=== PATIENT | male | born 2000 | race Hispanic/Latino ===

== ENCOUNTER → 2020-02-17 | Outpatient (CLI) | payer BC ==
[~2020-02-17] MED LIST: GADOBENATE DIMEGLUMINE 1 ML IV ONE; IOPAMIDOL 300 MG/ML 15ML VIAL IT ONE
--- NOTE | 2020-02-17 12:08 | Diagnostic Imaging Report ---
MRI of the left shoulder with contrast. History: Shoulder pain. Possible dislocation. Superior glenoid labrum tear. Shoulder laxity. Decreased range of motion Comparison: None Technique: Multiplanar multisequence MRI of the shoulder after the administration of intra-articular gadolinium contrast material Findings: Rotator cuff: The rotator cuff is intact without tear, muscle atrophy or retraction Osseous acromion complex: Type II acromion with mild lateral downsloping. The acromioclavicular joint is intact. Glenohumeral joint: Tear of the anterior inferior labrum and adjacent capsular structures best seen on axial series 2 image 14 through 17. Fraying and fissuring of the adjacent articular cartilage. The humeral head is well-seated in the glenoid fossa. Gadolinium contrast material is seen filling the glenohumeral joint. Mild deformity at the posterior superior humeral head with mild bone marrow edema best seen on series 2 image 10 and 11 consistent with a small Hill-Sachs fracture deformity. Biceps tendon: The biceps tendon is intact. Other findings: Negative for muscle denervation. Impression: Sequela of prior anterior inferior shoulder dislocation with relocation. Tear of the anterior inferior labrum and adjacent capsular structures with associated small Hill-Sachs fracture deformity at the posterior superior humeral head. Signed by: Dr. Andrea Kenney M.D. on 02/17/2020 12:04 PM
--- NOTE | 2020-02-17 13:23 | Diagnostic Imaging Report ---
PROCEDURE: Fluoroscopically guided arthrogram of the left glenohumeral joint Procedural Personnel Attending physician(s): Priyanka Pettit MD Fellow physician(s): None Resident physician(s): None Advanced practice provider(s): None Pre-procedure diagnosis: Left shoulder pain Post-procedure diagnosis: Same Indication: Left shoulder pain Additional clinical history: None Complications: No immediate complications. IMPRESSION: Fluoroscopically guided left glenohumeral arthrogram PROCEDURE SUMMARY: - Fluoroscopically guided arthrogram of the left glenohumeral joint. - Patient to be transported to MRI PROCEDURE DETAILS: Pre-procedure Consent: Informed consent for the procedure including risks, benefits and alternatives was obtained and time-out was performed prior to the procedure. Preparation: The site was prepared and draped using maximal sterile barrier technique including cutaneous antisepsis. Anesthesia/sedation Level of anesthesia/sedation: Local 1% lidocaine Arthrogram Senior Medical Technologist images were obtained. Following local 1% lidocaine anesthesia, a 22 gauge spinal needle was advanced to the left glenohumeral joint. Intra-articular positioning was confirmed with injection of 1cc Isovue contrast material. Subsequently, 12cc of gadolinium arthrogram solution was administered to the joint (containing 7cc normal saline, 3cc Isovue, 0.1cc Multihance gadolinium based contrast). Radiation Dose Fluoroscopy time (minutes): 0.7 Reference air kerma (mGy): 3.0 Additional Details Additional description of procedure: None Equipment details: None Specimens removed: None Estimated blood loss (mL): Less than 10 Attestation Signer name: Priyanka Pettit MD I attest that I was present for the entire procedure. I reviewed the stored images and agree with the report as written. Signed by: Priyanka Pettit MD on 02/17/2020 1:19 PM
== END ==
LOC: DX 09:41
PROVIDERS: ATTEND Specialist
DX: S43.432A Superior glenoid labrum lesion of left shoulder, initial encounter (principal)
CPT/HCPCS: 23350; 73222; 77002; A9577; Q9967